=== PATIENT | male | born 1970 | race Two or more races ===

== ENCOUNTER 2019-03-14 03:04 | Inpatient (IN) | payer OTHER ==
[~2019-03-14] VITALS: Ht 167.6 cm; Wt 99.2 kg
[2019-03-14 03:44] LABS: Basophils # (auto) 0 uL; Basophils % (auto) 0.6 % (0.0-2.0); Eosinophils # (auto) 0.2 uL; Eosinophils % (auto) 2.4 % (0.0-7.0); Hematocrit 44.4 % (41.0-53.0); Hemoglobin 15.1 g/dL (13.5-17.5); Lymphocytes # (auto) 2.3 uL; Lymphocytes % (auto) 31.1 % (10.0-50.0); Mean Corpuscular Hemoglobin 31.1 pg (28.0-32.0); Mean Corpuscular Volume 91.7 fL (80.0-100.0); Monocytes # (auto) 0.6 uL; Monocytes % (auto) 8.4 % (0.0-12.0); Neutrophils # (auto) 4.3 uL; Neutrophils % (auto) 57.5 % (37.0-80.0); Nucleated Red Blood Cells % 0.2 %; Platelet Count (auto) 277 10^3/uL (140-450); Red Blood Cells 4.84 10^6/uL (4.5-5.90); Red Cell Distribution Width 13.6 % (11.8-14.3); White Blood Cell 7.4 10^3/uL (4.4-10.8)
[2019-03-14 04:05] LABS: Alanine Aminotransferase 90 U/L (16-61); Albumin 3.5 g/dL (3.4-5.0); Anion Gap 7 (5-15); Aspartate Aminotransferase 24 U/L (15-37); BUN/Creatinine Ratio 14.4; Blood Urea Nitrogen 13 mg/dL (7-18); Calcium 8.3 mg/dL (8.5-10.1); Carbon Dioxide 28 mmol/L (21-32); Chloride 104 mmol/L (98-107); GFR African American 116 mL/min; GFR Non-African American 96 mL/min; Glucose 122 mg/dL (74-106); Magnesium 2.2 mg/dL (1.6-2.6); Potassium 4.3 mmol/L (3.5-5.1); Sodium 139 mmol/L (136-145)
[2019-03-14 04:10] LABS: Alkaline Phosphatase 70 U/L (45-117); Bilirubin, Total 0.3 mg/dL (0.2-1.0); Total Protein 7.4 g/dL (6.4-8.2)
[2019-03-14] MEDS ORDERED: HYDROcodone-ACET 10/325MG TAB PO PRN (06:45)
[2019-03-14] MEDS ORDERED: ONDANSETRON HCL 4 MG/2 ML VIAL IV PRN (06:45)
--- NOTE | 2019-03-14 07:50 | NUR ---
Telemetry admit from RD YA admitted to Telemetry unit after SBAR received. Patient oriented to Jazmine Badillo, primary RN, unit, room, bed, and unit policies regarding patient care and visiting hours. Patient now on continuous telemetry monitoring, tele box # 12 and telemetry reading on arrival to unit is SINUS RHYTHM AT 74BPM WITH PAC'S. Patient weighed by bedscale and encouraged to call if they need something. All questions and concerns addressed, patient verbalized understanding. Note: PT IS AWAKE AND ALERT, NO SIGNS OF DISTRESS AT THIS TIME OR CHEST PAIN, WILL CONTINUE TO MONITOR.
[2019-03-14 08:10] VITALS: BP 111/68
[2019-03-14 09:00] VITALS: BP 111/68
[2019-03-14] MEDS ORDERED: PNEUMOCOCCAL VACC POLYS 25 MCG/0.5 ML VIAL IM ONE (09:15)
[2019-03-14] MEDS ORDERED: INFLUENZA QUAD 2019-2020 0.5ml SYRG IM ONE (09:15)
--- NOTE | 2019-03-14 09:40 | NUR ---
PT SEEN BY DR. Gus TORRES HE ORDERED ADENOSINE CARDIOLITE STRESS TEST, ASPIRIN 81MG PO DAILY, HOLD LOPRESSOR AND ZESTRIL FOR SBP<110, CHANGED LOPRESSOR TO 12.5MG AND ZESTRIL 2.5MG.
[2019-03-14] MEDS ORDERED: METOPROLOL TARTRATE 25 MG TAB PO SCH (10:00)
[2019-03-14] MEDS ORDERED: LISINOPRIL 5 MG TAB PO SCH (10:00)
[2019-03-14] MEDS: NITROGLYCERIN 2% OINT 1GM PKG TD SCH (10:09)
[2019-03-14] MEDS: METOPROLOL TARTRATE 25 MG TAB PO SCH (10:10)
[2019-03-14] MEDS: LISINOPRIL 5 MG TAB PO SCH (10:10)
[2019-03-14] MEDS: ASPirin 81 mg TAB PO SCH (10:10)
[2019-03-14 10:23] LABS: Cholesterol 179 mg/dL (< 200)
[2019-03-14 10:25] LABS: HDL Cholesterol 39 mg/dL (40-59); LDL Cholesterol 122 mg/dL (< 100); Triglycerides 209 mg/dL (< 150)
--- NOTE | 2019-03-14 11:15 | NUR ---
PT IS OFF FLOOR FOR STRESS TEST
[2019-03-14] MEDS ORDERED: ADENOSINE 82 MG in GIVE UN-DILUTED 0 ML IV STA (11:41)
[2019-03-14 13:00] VITALS: BP 110/60
--- NOTE | 2019-03-14 13:04 | NUR ---
STRESS TEST-nuclear stress test completed on 03/14/2019.
--- NOTE | 2019-03-14 13:13 | NUR ---
PT SEEN BY DR. OLIVER
[2019-03-14 15:27] LABS: Hepatitis A Ab IgM Negative
[2019-03-14 15:28] LABS: Hepatitis B Core IgM Negative; Hepatitis B Surface Antigen Negative (Negative); Hepatitis C Antibody Negative (Negative)
[2019-03-14 17:00] VITALS: BP 114/61
--- NOTE | 2019-03-14 19:15 | NUR ---
RECEIVED PATIENT, AWAKE, ALERT ORIENTED X4. NO S/S OF DISTRESS, DENIES ANY PAIN. SHACKLES ON THE LEFT WRIST AND BILATERAL ANKLES, NO S/S OF SKIN BREAKDOWN. ORIENTED ON PLAN OF CARE. BED IS LOCKED AND IN LOWEST POSITION, SIDE RAILS UP X2, CALL LIGHT WITHIN REACH. WILL CONTINUE TO MONITOR.
[2019-03-14 22:00] VITALS: BP 106/51
[2019-03-15 05:22] VITALS: BP 104/56
--- NOTE | 2019-03-15 07:14 | NUR ---
CARE ENDORSED TO AM SHIFT RN
[2019-03-15 09:00] VITALS: BP 108/62
[2019-03-15] MEDS: ASPirin 81 mg TAB PO SCH (09:26)
[2019-03-15] MEDS: ENOXAPARIN SOD 40 MG/0.4 ML SYRINGE SC SCH (09:26)
[2019-03-15] MEDS: METOPROLOL TARTRATE 25 MG TAB PO SCH (10:00)
[2019-03-15] MEDS: LISINOPRIL 5 MG TAB PO SCH (10:00)
[2019-03-15] MEDS: NITROGLYCERIN 2% OINT 1GM PKG TD SCH (10:00)
--- NOTE | 2019-03-15 12:30 | NUR ---
PT SEEN BY DR. OLIVER MADE AWARE PT IS SCHEDULED FOR [facility] ON MONDAY.
[2019-03-15 13:00] VITALS: BP 115/62
[2019-03-15 17:00] VITALS: BP 116/68
--- NOTE | 2019-03-15 19:30 | NUR ---
Opening Shift Note Assumed care of patient, awake and alert. No S/S of distress/SOB. Guards at bedside. Instructed on POC and to call for assist PRN, will continue to monitor for changes Q1hr and PRN.
[2019-03-15 22:28] VITALS: BP 105/62
--- NOTE | 2019-03-16 02:45 | NUR ---
Continuation Of Care Assumed care of patient, eyes closed, respirations even and unlabored, appears asleep. Bed in lowest locked position, side rails up x2, call light within reach,uards at beside. No S/S of distress/SOB or pain. Instructed on POC and to call for assist PRN, will continue to monitor for changes Q1hr and PRN.
--- NOTE | 2019-03-16 02:45 | NUR ---
Endorsed patient to Zoraida RN. Patient resting, no distress noted. Sitter at bedside.
[2019-03-16 06:03] VITALS: BP 106/56
--- NOTE | 2019-03-16 07:00 | NUR ---
OPENING SHIFT NOTE ASSUMED CARE OF THE PATIENT FROM THE FINANCIAL SERVICES SALES REPRESENTATIVE RN. THE PATIENT IS A&OX4, NO SIGNS OR SYMPTOMS OF DISTRESS. EDUCATED THE PATIENT ON POC AND PATIENT VERBALIZED UNDERSTANDING. THE PATIENT'S CALL LIGHT IS WITHIN REACH AND BED IS IN THE LOWEST, LOCKED POSITION. WILL ROUND HOURLY AND CONTINUE TO MONITOR.
--- NOTE | 2019-03-16 07:00 | NUR ---
Closing Note Patient lying in bed, eyes closed, respirations even and unlabored, appears asleep. No s/s of distress. Bed in lowest locked position, side rails up x2, call light within reach, guards at bedside. Care endorsed to dayshift RN.
[2019-03-16 08:00] VITALS: BP 106/55
[2019-03-16 09:00] VITALS: BP 106/55
[2019-03-16] MEDS: ASPirin 81 mg TAB PO SCH (09:59)
[2019-03-16] MEDS: METOPROLOL TARTRATE 25 MG TAB PO SCH (10:00)
[2019-03-16] MEDS: NITROGLYCERIN 2% OINT 1GM PKG TD SCH (10:00)
[2019-03-16] MEDS: LISINOPRIL 5 MG TAB PO SCH (10:00)
[2019-03-16] MEDS: ENOXAPARIN SOD 40 MG/0.4 ML SYRINGE SC SCH (10:01)
[2019-03-16 13:00] VITALS: BP 112/57
[2019-03-16 17:00] VITALS: BP 118/69
--- NOTE | 2019-03-16 19:00 | NUR ---
Opening Shift Note Assumed care of patient, awake and alert. No S/S of distress/SOB or pain. Instructed on POC and to call for assist PRN, will continue to monitor for changes Q1hr and PRN.
[2019-03-16 22:00] VITALS: BP 126/66
[2019-03-17] VITALS (7 sets, daily range): BP systolic 108–132; BP diastolic 59–72
--- NOTE | 2019-03-17 00:30 | NUR ---
Assumed care of patient from CARLOS Pollard. Patient sleeping with guard at beside. No S/S of distress/SOB or pain.
--- NOTE | 2019-03-17 00:30 | NUR ---
Endorsed care to Carolina GONZALEZ.
--- NOTE | 2019-03-17 06:42 | NUR ---
Patient resting. No distress noted. No change in status.
--- NOTE | 2019-03-17 07:00 | NUR ---
OPENING SHIFT NOTE ASSUMED CARE OF THE PATIENT FROM THE TRANSIT MIXER DRIVER RN. THE PATIENT IS A&OX4, NO SIGNS OR SYMPTOMS OF DISTRESS. EDUCATED THE PATIENT ON POC AND PATIENT VERBALIZED UNDERSTANDING. THE PATIENT'S CALL LIGHT IS WITHIN REACH AND BED IS IN THE LOWEST, LOCKED POSITION. WILL ROUND HOURLY AND CONTINUE TO MONITOR.
[2019-03-17] MEDS: ENOXAPARIN SOD 40 MG/0.4 ML SYRINGE SC SCH (09:55)
[2019-03-17] MEDS: NITROGLYCERIN 2% OINT 1GM PKG TD SCH (09:55)
[2019-03-17] MEDS: METOPROLOL TARTRATE 25 MG TAB PO SCH (09:55)
[2019-03-17] MEDS: ASPirin 81 mg TAB PO SCH (09:55)
[2019-03-17] MEDS: LISINOPRIL 5 MG TAB PO SCH (09:55)
--- NOTE | 2019-03-17 14:38 | NUR ---
Nutrition Assessment Notes please see attached link for complete assessment Est. Needs ABW 81 [id number] kcal (23-25 kcal/kgBW), 81-89 gms pro (1.0-1.1 gms/kgBW). Will continue to monitor pertinent labs and reassess nutrient need prn Addendum: 03/17/19 at [address] Amended: Links added.
--- NOTE | 2019-03-17 18:37 | NUR ---
CONSENTS FOR LEFT HEART CATH SIGNED.
--- NOTE | 2019-03-17 19:51 | NUR ---
IV insertion IV access to right forearm obtained, via clean sterile technique by inserting 20 gauge catheter on first attempt. IV secured properly. No trauma to site. Patient tolerated procedure well.
[2019-03-17 19:57] LABS: INR 0.93 (0.9-1.15); Partial Thromboplastin Time 26.3 sec (23.64-32.05)
[2019-03-17 20:07] LABS: Urine Bacteria NONE SEEN /hpf (None Seen); Urine Blood Negative /uL (Negative); Urine Mucus FEW (None Seen); Urine WBC 2 /hpf (0 - 3)
--- NOTE | 2019-03-17 23:00 | NUR ---
Dr. Vargas rounding on patient. Patient update on plan of care.
[2019-03-18] VITALS (7 sets, daily range): BP systolic 103–121; BP diastolic 48–74
[2019-03-18 05:25] LABS: Basophils # (auto) 0 uL; Basophils % (auto) 0.5 % (0.0-2.0); Eosinophils # (auto) 0.2 uL; Eosinophils % (auto) 2.7 % (0.0-7.0); Hematocrit 44.8 % (41.0-53.0); Hemoglobin 15.1 g/dL (13.5-17.5); Lymphocytes # (auto) 2.4 uL; Lymphocytes % (auto) 29.6 % (10.0-50.0); Mean Corpuscular Hemoglobin 30.6 pg (28.0-32.0); Mean Corpuscular Hgb Conc. 33.6 g/dL (32.0-36.0); Mean Corpuscular Volume 91.1 fL (80.0-100.0); Monocytes # (auto) 0.6 uL; Monocytes % (auto) 7.5 % (0.0-12.0); Neutrophils # (auto) 4.8 uL; Neutrophils % (auto) 59.7 % (37.0-80.0); Nucleated Red Blood Cells % 0.2 %; Platelet Count (auto) 255 10^3/uL (140-450); Red Blood Cells 4.91 10^6/uL (4.5-5.90); Red Cell Distribution Width 13.5 % (11.8-14.3); White Blood Cell 8.1 10^3/uL (4.4-10.8)
[2019-03-18 05:36] LABS: INR 0.93 (0.9-1.15); Partial Thromboplastin Time 26.1 sec (23.64-32.05)
[2019-03-18 05:42] LABS: BUN/Creatinine Ratio 16.5; Calcium 8.4 mg/dL (8.5-10.1); Potassium 4.2 mmol/L (3.5-5.1)
--- NOTE | 2019-03-18 08:45 | NUR ---
TO HOT STONE SETTER
[2019-03-18] MEDS ORDERED: IOHEXOL 350 MG/ML 100ML IJ ONE (09:33)
[2019-03-18] MEDS ORDERED: LIDOCAINE 2%HCL (LOCAL ANESTH.) INJ 20ML MDV ONE (09:33)
[2019-03-18] MEDS ORDERED: ANGIOMAX 250 MG VIAL IV ONE (09:37)
[2019-03-18] MEDS ORDERED: fentaNYL CITRATE 100 MCG/2 ML VL ONE ×2 (09:37→10:07)
[2019-03-18] MEDS ORDERED: SODIUM CHL 0.9% 0 ML ONE (09:37)
[2019-03-18] MEDS ORDERED: MIDAZOLAM HCL 1MG/1ML-2 ML VIAL ONE ×2 (09:37→10:07)
[2019-03-18] MEDS: METOPROLOL TARTRATE 25 MG TAB PO SCH (09:43)
[2019-03-18] MEDS: ASPirin 81 mg TAB PO SCH (09:43)
[2019-03-18] MEDS: LISINOPRIL 5 MG TAB PO SCH (09:43)
[2019-03-18] MEDS: ENOXAPARIN SOD 40 MG/0.4 ML SYRINGE SC SCH (09:44)
--- NOTE | 2019-03-18 11:10 | NUR ---
RETURNED TO 237 FROM MUSEUM ASSISTANT RT GROIN IS SOFT, NO HEMATOMA PALPATED. GD PEDA PULSE. PT DENIES PAIN. EXPLAINED POC
--- NOTE | 2019-03-18 11:30 | NUR ---
RT GROIN INJECTION SITE SOFT, CLEAN, GOOD DISTAL PULSES
--- NOTE | 2019-03-18 12:00 | NUR ---
RT GROIN SITE WITH DRESSING D/I; SOFT WITH GD DISTAL PULSES
--- NOTE | 2019-03-18 12:30 | NUR ---
RT GROIN SITE WITH DRESSING D/I; SOFT WITH GD DISTAL PULSES. HOB UP FOR LUNCH WITHOUT DIFFICULTIES
--- NOTE | 2019-03-18 13:00 | NUR ---
RT GROIN SITE WITH DRESSING D/I; SOFT WITH GD DISTAL PULSES. ATE LUNCH WELL NO CHANGE IN GROIN ASSESSMENT
--- NOTE | 2019-03-18 15:00 | NUR ---
PT AND CORRECTION OFFICERS INFORMED OF DC. IV'S DC FROM RT HAND AND RT FOREARM, CATH INTACT. TELEMETRY BOX #12 REMOVED AND SENT TO ICU. PT REQUESTED TO SHOWER
--- NOTE | 2019-03-18 15:45 | NUR ---
PT SHOWERED. BRIGITTE WELL, NO PAIN OR SOB. RT GROIN SITE SOFT, CLEAN. DISCHARGE INSTRUCTIONS GIVEN DRESSED AND WAITING FOR TRANSPORT VAN.
--- NOTE | 2019-03-18 16:14 | NUR ---
DISCHARGE NOTE AMBULATED OUT OF DEPTARTMENT WITH 2 CORRECTION OFFICERS FOR [facility] TRANSPORT [facility]. PT DENIES PAIN, SOB. SKIN W/D
== END 2019-03-18 16:14 | DRG 287 ==
LOC: EEVIPCON 03:08 → ER 03:08 → TELE 03:09 → TELE-EAST 07:46
PROVIDERS: ADMIT Internal Medicine; ATTEND Internal Medicine
PROC: 4A023N7 Measurement of Cardiac Sampling and Pressure, Left Heart, Percutaneous Approach (ICD-10-PCS; principal; 2019-03-18)
PROC: B2111ZZ Fluoroscopy of Multiple Coronary Arteries using Low Osmolar Contrast (ICD-10-PCS; 2019-03-18)
PROC: B41F1ZZ Fluoroscopy of Right Lower Extremity Arteries using Low Osmolar Contrast (ICD-10-PCS; 2019-03-18)
PROC: B2151ZZ Fluoroscopy of Left Heart using Low Osmolar Contrast (ICD-10-PCS; 2019-03-18)
DX: I25.110 Atherosclerotic heart disease of native coronary artery with unstable angina pectoris (principal); I10 Essential (primary) hypertension; E66.9 Obesity, unspecified; F15.10 Other stimulant abuse, uncomplicated; I25.2 Old myocardial infarction; Z82.49 Family history of ischemic heart disease and other diseases of the circulatory system; Z87.891 Personal history of nicotine dependence; Z68.35 Body mass index [BMI] 35.0-35.9, adult
CPT/HCPCS: 36415; 71045; 75710; 78452; 80048; 80053; 80061; 80074; 81001; 83735; 83880; 84484; 85025; 85610; 85730; 93005; 93017; 93458; 99152; G0378; J0153; J2250